=== PATIENT | male | born 1940 | race African-American/Black ===

== ENCOUNTER → 2016-09-24 | Outpatient (CLI) | payer MEDICARE ==
[~2016-09-24] MED LIST: ACET-1600 PO; ASPI325T4 PO; CELE200C PO; CODE1CAP23 PO; GABA600T2 PO; INDO75CA3 PO; NEBI10TA3 PO; OXYC1TAB7 PO; OXYC5CAP4 PO; REGADENOSON 0.4 MG/5 ML SYRINGE ONE; TRIA1TAB3 PO
== END | disposition home or self-care (01) ==
LOC: CFH 06:48
PROVIDERS: ATTEND Internal Medicine Cardiovascular Disease
DX: I42.9 Cardiomyopathy, unspecified (principal); I10 Essential (primary) hypertension
CPT/HCPCS: 78452; 93017; 93306; A9502; J2785

== ENCOUNTER → 2017-09-28 | Outpatient (CLI) | payer MEDICARE ==
[~2017-09-28] MED LIST changes: +ASPI325T17 PO; -ASPI325T4 PO; +OXYC5CAP2 PO; -OXYC5CAP4 PO; -REGADENOSON 0.4 MG/5 ML SYRINGE ONE
== END | disposition home or self-care (01) ==
LOC: CVU 09:26
PROVIDERS: ATTEND Internal Medicine Cardiovascular Disease
DX: I65.23 Occlusion and stenosis of bilateral carotid arteries (principal); I10 Essential (primary) hypertension; H52.531 Spasm of accommodation, right eye
CPT/HCPCS: 93880